=== PATIENT | female | born 1960 | race Caucasian/White ===

== ENCOUNTER 2025-05-14 06:26 | Day surgery (SDC) | payer MEDICAID, MEDICARE ==
[~2025-05-14 06:26] MED LIST: Dexamethasone/Neomycin/Polymyxin B Ophth Oint 3.5 GM Tube ONE; Lidocaine 1% 2 ML ONE; Phenyleprhine/Ketorolac 4 ML Vial ONE; Povidone-Iodine 5% Sterile Ophth Soln 30 ML Bottle ONE
[2025-05-14] MEDS: Cyclopentolate 1% Opth Soln 2 ML Bottle EYERT SCH (06:36)
[2025-05-14] MEDS: Moxifloxacin 0.5% Ophth Soln 3 ML Bottle EYERT ONE ×2 (06:57→07:42)
[2025-05-14] MEDS ORDERED: Midazolam 1 MG/ML 2 ML SDV ONE (07:30)
[2025-05-14] MEDS ORDERED: fentaNYL 100 MCG/2 ML SDV ONE (07:30)
[2025-05-14] MEDS: Povidone-Iodine 5% Sterile Ophth Soln 30 ML Bottle EYERT ONE (07:42)
[2025-05-14] MEDS: Lidocaine 1% PF 2 ML SDV INFILT ONE (07:43)
[2025-05-14] MEDS: Phenyleprhine/Ketorolac 4 ML Vial IOCULAR ONE (07:43)
[2025-05-14] MEDS: Balanced Salt Solution Ophth Irrig 500 ML Bottle IOCULAR ONE (07:43)
[2025-05-14] MEDS: Chondroitin Sulfate/Hyaluronate Sodium Ophth Inj 0.5 ML Syringe IOCULAR ONE (07:44)
[2025-05-14] MEDS: Dexamethasone/Neomycin/Polymyxin B Ophth Oint 3.5 GM Tube EYERT ONE (07:44)
== END 2025-05-14 08:25 | disposition home or self-care (01) ==
LOC: VM.SDS 06:26
PROVIDERS: ATTEND Ophthalmology
DX: E11.36 Type 2 diabetes mellitus with diabetic cataract (principal); H25.813 Combined forms of age-related cataract, bilateral; H02.831 Dermatochalasis of right upper eyelid; H02.834 Dermatochalasis of left upper eyelid; I50.9 Heart failure, unspecified; E66.9 Obesity, unspecified; Z79.4 Long term (current) use of insulin; Z79.84 Long term (current) use of oral hypoglycemic drugs; Z88.2 Allergy status to sulfonamides; Z88.8 Allergy status to other drugs, medicaments and biological substances; Z79.899 Other long term (current) drug therapy
CPT/HCPCS: 66984; 82947; A9270; J0690; J1097; J2003; J2250; J3010; 00142; J3490; V2632